=== PATIENT | female | born 1975 | race Caucasian/White ===

== ENCOUNTER → 2021-05-24 14:17 | Outpatient (BNVA) | payer OTHER, SELFPAY | PROVIDERS: Visit Provider Physician Assistant Medical | DX: S06.2X0A Diffuse traumatic brain injury without loss of consciousness, initial encounter (principal); Y04.2XXA Assault by strike against or bumped into by another person, initial encounter | CPT/HCPCS: 99203 ==

== ENCOUNTER → 2021-05-29 09:10 | Outpatient (BNVA) | payer OTHER, SELFPAY | PROVIDERS: Visit Provider Physician Assistant Medical | DX: S06.9X0A Unspecified intracranial injury without loss of consciousness, initial encounter (principal); T14.8XXA Other injury of unspecified body region, initial encounter; Y04.8XXA Assault by other bodily force, initial encounter | CPT/HCPCS: 99213 ==

== ENCOUNTER → 2021-06-06 10:02 | Outpatient (BNVA) | payer OTHER, SELFPAY | PROVIDERS: Visit Provider Physician Assistant Medical | DX: S06.890A Other specified intracranial injury without loss of consciousness, initial encounter (principal); Y04.8XXA Assault by other bodily force, initial encounter; G43.909 Migraine, unspecified, not intractable, without status migrainosus | CPT/HCPCS: 99213 ==

== ENCOUNTER → 2021-06-13 13:34 | Outpatient (BNVA) | payer OTHER, SELFPAY | PROVIDERS: Visit Provider Physician Assistant Medical | DX: S06.9X0A Unspecified intracranial injury without loss of consciousness, initial encounter (principal); Y04.8XXA Assault by other bodily force, initial encounter; G43.909 Migraine, unspecified, not intractable, without status migrainosus | CPT/HCPCS: 99213 ==

== ENCOUNTER → 2021-06-27 15:02 | Outpatient (BNVA) | payer OTHER, SELFPAY | PROVIDERS: Visit Provider Physician Assistant Medical | DX: S06.9X0D Unspecified intracranial injury without loss of consciousness, subsequent encounter (principal); Y04.2XXD Assault by strike against or bumped into by another person, subsequent encounter; G43.909 Migraine, unspecified, not intractable, without status migrainosus | CPT/HCPCS: 99213 ==

== ENCOUNTER → 2021-07-17 11:23 | Outpatient (BNVA) | payer OTHER, SELFPAY | PROVIDERS: PCP Internal Medicine; Visit Provider Physician Assistant Medical | DX: F07.81 Postconcussional syndrome (principal); G43.809 Other migraine, not intractable, without status migrainosus | CPT/HCPCS: 99213 ==

== ENCOUNTER → 2021-07-31 14:02 | Outpatient (BNVA) | payer OTHER, SELFPAY | PROVIDERS: PCP Internal Medicine; Visit Provider Physician Assistant Medical | DX: F07.81 Postconcussional syndrome (principal) | CPT/HCPCS: 99213 ==

== ENCOUNTER → 2021-08-21 13:23 | Outpatient (BNVA) | payer OTHER, SELFPAY | PROVIDERS: PCP Internal Medicine; Visit Provider Physician Assistant Medical | DX: F07.81 Postconcussional syndrome (principal) | CPT/HCPCS: 99213 ==

== ENCOUNTER → 2021-09-12 11:20 | Outpatient (BNVA) | payer OTHER, SELFPAY | PROVIDERS: PCP Internal Medicine; Visit Provider Physician Assistant Medical | DX: F07.81 Postconcussional syndrome (principal) | CPT/HCPCS: 99213 ==

== ENCOUNTER → 2021-09-26 15:53 | Outpatient (BNVA) | payer OTHER, SELFPAY | PROVIDERS: PCP Internal Medicine; Visit Provider Physician Assistant Medical | DX: F07.81 Postconcussional syndrome (principal) | CPT/HCPCS: 99213 ==

== ENCOUNTER 2021-10-16 15:00 | Outpatient (RCR) | payer OTHER, BC, SELFPAY ==
[2021-07-16 08:05] VITALS: BP 107/53; PULSE 60
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
--- NOTE | 2021-10-16 15:45 | MHC.PT.DC ---
[facility] [place] Office [place] Office [place] Office [address] Ana Laura Parekh [address] [phone] F: [phone] F: [phone] F: [phone] F: [phone] Physical Therapy Discharge Report Diagnosis: TBI/Concussion Date of Surgery: NA Date of Evaluation: 07/16/21 Date of Discharge: 10/16/21 Treatments to Date: 13 Cancellations to Date: 0 No Shows to Date: 0 Discharge Status: Achieved Goals Improved Function Independent with HEP Discharge Summary: Andrey arrived stating she is feeling good. She had a couple of weeks off due to work commitments and family vacation. During the week she had work commitments she was able to focus on computers for about 8 hours and perform stair negotiations and to different rooms without any symptoms of dizziness. She had no issues with memory, concentration, and dizziness. She also pushed herself physically with a lot of yard work, swimming and stairs. She had no symptoms of dizziness. Andrey has returned to OF of physically and cognitively. She is able to take up more work challenges and does not have any issues with the same. She has achieved all goals set for her. She is therefore being d/c from PT today. Electronically signed by: Yenifer Bueno PT DPT Please sign and return to therapist. Thank you for your referral.
== END 2021-10-16 15:47 | disposition home or self-care (01) ==
LOC: HO.PT 15:00
PROVIDERS: PCP Internal Medicine; Visit Provider Physician Assistant Medical
DX: S06.9X0D Unspecified intracranial injury without loss of consciousness, subsequent encounter (principal)
CPT/HCPCS: 95992; 97110; 97112; 97140; 97161; 97530

== ENCOUNTER → 2021-10-17 16:36 | Outpatient (BNVA) | payer OTHER, SELFPAY | PROVIDERS: PCP Internal Medicine; Visit Provider Physician Assistant Medical | DX: F07.81 Postconcussional syndrome (principal) | CPT/HCPCS: 99213 ==

== ENCOUNTER → 2022-04-01 15:04 | Outpatient (BNVA) | payer OTHER, SELFPAY | PROVIDERS: PCP Internal Medicine; Visit Provider Internal Medicine | DX: S90.31XA Contusion of right foot, initial encounter (principal); Y00.XXXA Assault by blunt object, initial encounter | CPT/HCPCS: 73630; 99203 ==

== ENCOUNTER → 2022-04-11 07:50 | Outpatient (BNVA) | payer OTHER, SELFPAY | PROVIDERS: PCP Internal Medicine; Visit Provider Internal Medicine | DX: S90.31XA Contusion of right foot, initial encounter (principal); Y00.XXXA Assault by blunt object, initial encounter | CPT/HCPCS: 99213 ==

== ENCOUNTER 2024-09-17 17:37 | Emergency (ER) | payer BC, SELFPAY ==
--- NOTE | ~2024-09-17 | CT_ITS ---
CLINICAL HISTORY: Headache question aneurysm CT head without contrast Comparison: None provided Findings: No intracranial mass, midline shift, hydrocephalus, or acute hemorrhage. No acute process in sinuses or mastoids. No acute bony abnormality. Chapo cisterna magna variant noted. Impression: No acute intracranial process CT angiogram head/[place] with contrast, Multiplanar reconstructions and 3D postprocessing Comparison: None provided Findings: No sagittal reconstructions available to assess for aneurysm. Oblique carotid bifurcation images were sent. No thin slice images available for local manipulation. No definite aneurysm identified on the available images. Normal configuration noted in the [place] vessels. No acute filling defect or vessel truncation noted. Dural venous sinuses patent without filling defects. Impression: Somewhat limited study as above No acute vascular abnormalities CT angiogram of the neck/carotid arteries with contrast, Multiplanar reconstructions and MIPS Comparison: None provided Findings: Great vessel origins are patent at the level of the aortic arch. Bilateral subclavian arteries are patent without stenosis. Bilateral vertebral artery origins are patent without stenosis. No evidence for vertebral dissection. Vertebrals equal in caliber. Bilateral common carotid arteries are unremarkable. Bilateral carotid bulbs demonstrate no significant plaque. No significant bilateral internal carotid artery stenosis. No significant soft tissue mass or adenopathy. No significant focal bony abnormalities. Impression: No significant vascular abnormalities This document has been electronically signed by: Wesley Orozco MD on 09/17/2024 22:04:07
[2024-09-17 17:55] VITALS: BP 144/77; PULSE 72; RESP 16; TEMP 36.8; O2SAT 100; BMI 28.7
--- NOTE | 2024-09-17 17:56 | ED_ITS ---
HPI - General Adult General Chief complaint: Neuro Symptoms/Deficit Stated complaint: N/V dizziness, vomiting Time Seen by Provider: 09/17/24 18:43 History of Present Illness HPI narrative: Patient is 49 year old female presented today with having sudden onset of migraine headache. The migraine initially was frontal. Similar to previous bouts of migraine patient tried to take a cocktail of medication to help her with the headache with some relief then later on in the day patient started having sudden onset of spinning sensation that was extreme. The spinning sensation is worse with movement. It is associated with nausea and vomiting. It is not associated with any focal weakness. It is very abrupt. Patient from home. No focal weakness. No history of intracranial bleed no family history intracranial bleed no trauma. No earache. Related Data Previous Rx's ?Medication ?Instructions ?Recorded meclizine 25 mg chewable tablet 25 mg PO TID Vertigo # 20 tabs 09/17/24 (Antivert) Allergies Allergy/AdvReac Type Severity Reaction Status Date / Time ciprofloxacin (From Cipro) Allergy Unknown Verified 09/17/24 18:02 [id number] Reductase Allergy Unknown Verified 09/17/24 18:02 Inhibitor Review of Systems 2 Review of Systems: Positive spinning sensation Positive nausea PMFSH Past Medical History Attestation statement: The following information was validated with the patient. Social History Social History Smoked in Last 30 Days: No Advance Directives: No Advance Directives Information Provided: Yes Advance Directives on File: No Do you have a plan to hurt others: No Plan Physical Exam ED Vital Signs: Vital Signs - 24 hr 09/17/24 17:55 09/17/24 21:21 09/17/24 21:54 Temperature 98.2 F 98.2 F Pulse Rate 72 68 70 Respiratory Rate 16 16 16 Blood Pressure 144/77 H 117/74 120/69 Pulse Oximetry 100 98 98 Oxygen Delivery Method Room Air Room Air Room Air BMI result Body Mass Index 28.7 Appearance: Alert. Oriented X3. No acute distress. Eyes: Pupils equal, round and reactive to light. ENT: Pharynx normal. Neck: Normal inspection. Neck supple. No lymph nodes noted. No crepitus CVS: Normal heart rate and rhythm. Pulses normal. Normal S1 and S2 Respiratory: No respiratory distress. Breath sounds normal. No Wheezing. No rales Abdomen: Soft and nontender. No rigidity. No distention. good BS x4 Skin: Skin warm and dry. Normal skin color. Normal skin turgor. Extremities: No lower extremity edema. Neurovascular intact to all extremities. No Lacerations. No Rash Neuro: Oriented X 3. No motor deficit. No sensory deficit. Moving all extermities. No slurred speech. Netta Hallpike maneuver reproduces patient's symptoms of vertigo. NIH Stroke Scale Internal: Initial- Upon Arrival Time: 18:05 Level of Consciousness: Alert Level of Consciousness Questions: Answers both questions correctly Level of Consciousness Commands: Performs both tasks correctly Best Gaze: Normal Visual: No visual loss Facial Palsy: Normal Motor Arm (Right): No drift Motor Arm (Left): No drift Motor Leg (Right): No drift Motor Leg (Left): No drift Limb Ataxia: Absent Sensory: Normal Best Language: No aphasia Dysarthia: Normal Extinction and Inattention: No abnormality Score: 0 Course Course Course Narrative: 09/17/24 [id number] MAINOR Dixon This is a Rapid Medical Examination (RME) performed by Silvia Martinez PA-C in triage. Full HPI, ROS, assessment and treatment plan per primary provider in the Main ED. Hx: 49 yo F hx migraines here for eval of acute onset CAVANAUGH, dizziness/light headedness, blurred vision, nausea, vomiting, difficulty walking x2 hours. Symptoms began while at urgent Care with her daughter where her daughter was diagnosed with strep throat. Reports waking up with a migraine this morning, took her home meds with improvement until 2 hours ago. nausea and dizziness have been consistent. no further vomiting. no thinners. no head trauma. PE/vitals: NIH 0. cerebellum is intact, ambulating w/ steady gait. Plan: labs, viral/strep swabs, ct head Medications Administered Discontinued Medications Generic Name Dose Route Start Last Admin Trade Name Freq PRN Reason Stop Dose Admin Diphenhydramine HCl 50 mg 09/17/24 19:21 09/17/24 21:24 Diphenhydramine Hcl 50 Mg/Ml Vial IVPUSH 09/17/24 19:22 50 mg ONCE ONE Administration Sodium Chloride 1,000 mls @ 999 mls/hr 09/17/24 19:30 09/17/24 21:23 Ns IV 09/17/24 20:30 999 mls/hr .Q1H1M MAYUR Administration Iohexol 100 ml 09/17/24 20:10 09/17/24 20:10 Iohexol 350 Mg/Ml 100 Ml Infus..Btl IV 09/17/24 20:11 70 ml ONCE ONE Administration Metoclopramide HCl 10 mg 09/17/24 19:21 09/17/24 21:24 Metoclopramide Hcl 10 Mg/2 Ml Vial IVPUSH 09/17/24 19:22 10 mg ONCE ONE Administration Medical Decision Making Medical Decision Making [facility] Narrative: Patient is 49 years old presents today with having a migraine type headache then had spinning sensation. That is worse with movement. It is extreme. We gave patient a dose of Toradol a dose of Reglan along with Benadryl. Good relief of the spinning sensation and also the headache. CT angio of the head was done. Patient's headache greater than [address] angio negative for any acute evidence of bleeding. No aneurysm. In the setting of negative aneurysm no bleed. Patient unlikely to have an subarachnoid hemorrhage. Will discharge patient home. Patient's headache is now 2/10. In stable condition. Differential Diagnosis Differential Diagnoses: The differential diagnosis associated with the presentation includes Peripheral vertigo, migraine, intracranial bleed Admission/Observation Consideration of admission/observation: Escalation of care including admission/observation considered No need to stay as patient's headache improved Lab Data [facility] Lab Attestation statement: I reviewed the patient's lab results. 09/17/24 18:30 09/17/24 18:30 Labs: Lab Results 09/17/24 Range/Units 18:30 WBC 7.3 (4.8-10.8) X10*3/uL RBC 4.09 L (4.20-5.50) X10*6/uL Hgb 12.6 (12.0-16.0) g/dl Hct 37.2 (37.0-47.0) % MCV 91.0 (80.0-98.0) fL MCH 30.8 (27.0-33.0) pg MCHC 33.9 (31.0-35.0) g/dl RDW 14.1 (11.0-16.0) % Plt Count 239 (160-400) X10*3/uL MPV 9.8 (9.4-12.3) fL Immature Gran % (Auto) 0.3 (0.0-0.4) % Neut % (Auto) 65.6 (45-73) % Lymph % (Auto) 25.4 (20-40) % [place] % (Auto) 7.1 (2-11) % Eos % (Auto) 1.1 (0-4) % Baso % (Auto) 0.5 (0-2) % Lymph # (Auto) 1.9 (1.2-4.9) X10*3/uL [place] # (Auto) 0.5 (0.1-1.2) X10*3/uL Eos # (Auto) 0.1 (0.0-0.4) X10*3/uL Baso # (Auto) 0.0 (0.0-0.2) X10*3/uL Abs Immat Gran (auto) 0.02 (0.00-0.03) X10*3/uL Absolute Neuts (auto) 4.8 (2.0-8.3) x10*3/uL Absolute Nucleated RBC 0.000 (0.0-0.012) X10*3/uL Nucleated RBC % (auto) 0.0 (0.0-0.2) /100WBC Sodium 141 (135-145) mmol/L Potassium 4.4 (3.3-5.1) mmol/L Chloride 111 H (96-108) mmol/L Carbon Dioxide 20 L (22-29) mmol/L Anion Gap 14 (12-20) BUN 13 (9-16) mg/dL Creatinine 0.95 (0.5-1.4) mg/dL Estim Creat Clear Calc 71.3 Estimated GFR > 60 Random Glucose 93 (60-115) mg/dL Calcium 9.0 (8.4-10.2) mg/dL Magnesium 2.0 (1.6-2.6) mg/dL Total Bilirubin 0.2 (0.0-1.0) mg/dL AST 93 H (5-31) U/L ALT 33 H (0-31) U/L Alkaline Phosphatase 62 (39-117) U/L Troponin I High Sens < 2.7 (<3.5-17.0) ng/L Total Protein 6.8 (6.5-8.0) g/dL Albumin 4.1 (3.5-5.0) g/dL Influenza Type A (PCR) NEGATIVE (Negative) Influenza Type B (PCR) NEGATIVE (Negative) RSV RNA Qual (PCR) NEGATIVE (Negative) SARS-CoV-2 RNA (RT-PCR) NEGATIVE (Negative) S. pyogenes GrpA RUBIA Negative (Negative) Independent Interpretation I performed an independent interpretation of an: CT Scan (CT head was grossly negative for any acute evidence of bleed. CT angio was negative for any evidence of large aneurysm) Radiology Impression Discussion of test interpretation with radiology: I have reviewed the radiologist's reading. Chronic Conditions History of migraine Discharge Plan Discharge Clinical Impression: Peripheral vertigo, Headache, migraine Patient Disposition: Home, Self-Care Instructions: Migraine Headache (ED), Vertigo (DC) Prescriptions: New meclizine [Antivert] 25 mg tablet,chewable 25 mg PO TID Qty: 20 0RF Referrals: Emmie Wallace CNP [Primary Care Provider, Family Practice] - 09/20/24 Stand Alone Forms: Work/School Release Print Language: Faroese
--- NOTE | 2024-09-17 18:02 | ECG_ITS ---
Test Reason : CP Blood Pressure : */* mmHG Vent. Rate : 69 BPM Atrial Rate : 69 BPM P-R Int : 154 ms QRS Dur : 86 ms QT Int : 392 ms P-R-T Axes : 48 16 43 degrees QTcB Int : 420 ms Normal sinus rhythm Normal ECG No previous ECGs available Referred By: Tricia Martinez Electronically Signed By: JAZZY CEDENO
[2024-09-17 18:35] LABS: MANUAL DIFF FLAG NO
[2024-09-17 18:37] LABS: Basophils Percent Auto 0.5 % (0-2); Eosinophils Absolute Auto 0.1 X10*3/uL (0.0-0.4); Eosinophils Percent Auto 1.1 % (0-4); Hematocrit 37.2 % (37.0-47.0); Hemoglobin 12.6 g/dl (12.0-16.0); Imm Gran Abs Auto 0.02 X10*3/uL (0.00-0.03); Imm Gran Pct Auto 0.3 % (0.0-0.4); Lymphocytes Absolute Auto 1.9 X10*3/uL (1.2-4.9); Lymphocytes Percent Auto 25.4 % (20-40); Mean Corpuscular HGB Conc 33.9 g/dl (31.0-35.0); Mean Corpuscular Hemoglobin 30.8 pg (27.0-33.0); Mean Platelet Volume 9.8 fL (9.4-12.3); Monocytes Absolute Auto 0.5 X10*3/uL (0.1-1.2); Monocytes Percent Auto 7.1 % (2-11); Neutrophils Absolute Auto 4.8 x10*3/uL (2.0-8.3); Neutrophils Percent Auto 65.6 % (45-73); Platelet Count 239 X10*3/uL (160-400); Red Blood Count 4.09 X10*6/uL (4.20-5.50); Red Cell Distribution Width 14.1 % (11.0-16.0); White Blood Count 7.3 X10*3/uL (4.8-10.8)
[2024-09-17 18:43] LABS: IDNOW Serial# 55D5AD1C; Strep A Nucleic Acid Negative (Negative)
[2024-09-17 18:52] LABS: Alanine Aminotransferase 33 U/L (0-31); Albumin Level 4.1 g/dL (3.5-5.0); Alkaline Phosphatase 62 U/L (39-117); Anion Gap 14 (12-20); Aspartate Amino Transferase 93 U/L (5-31); Bilirubin Total 0.2 mg/dL (0.0-1.0); Blood Urea Nitrogen 13 mg/dL (9-16); Carbon Dioxide 20 mmol/L (22-29); Chloride 111 mmol/L (96-108); Creatinine Clr Calc Pharmacy 71.3; Estimated Glomerular Filt Rate > 60; Glucose Random 93 mg/dL (60-115); Potassium 4.4 mmol/L (3.3-5.1); Sodium 141 mmol/L (135-145); Total Protein 6.8 g/dL (6.5-8.0)
[2024-09-17 18:59] LABS: Troponin-I High Sensitivity < 2.7 ng/L (<3.5-17.0)
[2024-09-17 19:13] LABS: Influenza A PCR NEGATIVE (Negative); Influenza B PCR NEGATIVE (Negative); Resp Syncy Virus RNA Qual PCR NEGATIVE (Negative); SARS COV2 PCR INHOUSE NEGATIVE (Negative)
[2024-09-17] MEDS: iohexoL 350 MG/ML 100 ML INFUS..BTL IV (20:10)
[2024-09-17 21:21] VITALS: BP 117/74; PULSE 68; RESP 16; TEMP 36.8; O2SAT 98
[2024-09-17] MEDS: 0.9 % Sodium Chloride 1,000 ML 999 ML IV (21:23)
[2024-09-17] MEDS: Metoclopramide HCl 10 MG/2 ML VIAL IVPUSH (21:24)
[2024-09-17] MEDS: diphenhydrAMINE HCL 50 MG/ML VIAL IVPUSH (21:24)
[2024-09-17 21:54] VITALS: BP 120/69; PULSE 70; RESP 16; O2SAT 98
[2024-09-17 23:29] VITALS: BP 119/61; PULSE 78; RESP 16; TEMP 36.8; O2SAT 98
== END 2024-09-17 23:30 | disposition home or self-care (01) ==
PROVIDERS: Physician Assistant Medical; Emergency Provider Emergency Medicine Emergency Medical Services; PCP Nurse Practitioner Primary Care
DX: G43.909 Migraine, unspecified, not intractable, without status migrainosus (principal); H81.399 Other peripheral vertigo, unspecified ear; R11.0 Nausea; R29.700 NIHSS score 0; Z03.818 Encounter for observation for suspected exposure to other biological agents ruled out
CPT/HCPCS: 0241U; 70496; 70498; 80053; 83735; 84484; 85025; 87651; 93005; 96361; 96374; 96375; 99285; J1200; J2765; Q9967

== ENCOUNTER → 2024-09-17 18:02 | Outpatient (BNV) | payer BC, SELFPAY | PROVIDERS: Emergency Provider Emergency Medicine Emergency Medical Services; PCP Nurse Practitioner Primary Care; Visit Provider Internal Medicine | DX: R07.9 Chest pain, unspecified (principal) | CPT/HCPCS: 93010 ==

== ENCOUNTER → 2024-09-17 19:21 | Outpatient (BNV) | payer BC, SELFPAY | PROVIDERS: Emergency Provider Emergency Medicine Emergency Medical Services; PCP Nurse Practitioner Primary Care; Visit Provider Radiology Diagnostic Radiology | DX: R51.9 Headache, unspecified (principal) | CPT/HCPCS: 70496; 70498 ==